=== PATIENT | female | born 1985 | race Caucasian/White ===

== ENCOUNTER → 2018-11-19 | Outpatient (REF) ==
[~2018-11-19] MED LIST: ADDE5CAP PO; ALBU17IN INH; ALBUPOW9 XX; BCP PO; CITA20TA6 PO; FOLI1TAB86 PO; KLON1TAB PO; LAMI25TA PO; LATU40TA PO; LITH150C PO; MULTTAB33 PO; MUPI1OIN2 TOP; NEUR300C PO; NEXI1CAP3 PO; NEXI40GR PO; OLAN2.5T PO; PROZ20CA11 PO; RISP1TAB3 PO; THIA100T PO; TRAZ100T2 PO; TRAZ50TA2 PO; VITA-182 PO; VITAPRTA PO; bcp PO
--- NOTE | 2018-11-19 19:24 | REP ---
Clinical: Left hip pain. Technique: Neutral and frog lateral views of the left hip. Findings: Generalized age-related changes are appreciated. No overt osteoarthritic degenerative changes are appreciated. No periarticular calcifications or loose bodies noted. No acute fracture dislocation. Phleboliths noted in the pelvis. Impression: Age-appropriate left hip radiographs. Electronically Signed by Rustam Petersen MD 11/19/2018 07:15 P
== END ==
LOC: M SMT 13:33
PROVIDERS: ATTEND Internal Medicine
DX: Z02.71 Encounter for disability determination (principal)

== ENCOUNTER → 2023-11-21 | Outpatient (REF) | payer OTHER, MEDICAID ==
[~2023-11-21] MED LIST changes: -LATU40TA PO; +LATU40TA2 PO
[2023-11-21 14:26] LABS: HEMATOCRIT 38.5 % (36.0-47.0); HEMOGLOBIN 12.6 g/dl (12.0-15.5); MEAN CORPUSCULAR HEMOGLOBIN 29.4 pg (27.0-33.0); MEAN CORPUSCULAR HGB CONC 32.7 g/dl (32.0-36.5); PLATELET COUNT, AUTOMATED 302 10^3/uL (150-450); RED BLOOD COUNT 4.28 10^6/uL (4.00-5.40); WHITE BLOOD COUNT 6.7 10^3/uL (4.0-10.0)
[2023-11-21 14:40] LABS: HEMOGLOBIN A1c 5.4 % (4.0-6.0)
[2023-11-21 14:54] LABS: ALBUMIN 3.9 G/DL (3.2-5.2); ALKALINE PHOSPHATASE 70 U/L (46-116); ALT/SGPT 16 U/L (7.0-40); AST/SGOT < 8 U/L (<34); BILIRUBIN,TOTAL 0.4 MG/DL (0.3-1.2); BLOOD UREA NITROGEN 14 MG/DL (9-23); CALCIUM LEVEL 9.4 MG/DL (8.5-10.1); CARBON DIOXIDE LEVEL 28 MMOL/L (20-31); CHLORIDE LEVEL 106 MMOL/L (98-107); CHOLESTEROL LEVEL 133 MG/DL (<200); CHOLESTEROL RISK RATIO 2.61 (<5); CREATININE FOR GFR 0.83 MG/DL (0.55-1.30); GLOMERULAR FILTRATION RATE > 60.0 (>60); GLUCOSE, FASTING 86 MG/DL (60-100); HDL CHOLESTEROL 50.8 MG/DL (>40); LDL CHOLESTEROL 68.2 MG/DL (<100); NON-HDL-C 82.2 MG/DL; POTASSIUM SERUM 3.7 MMOL/L (3.5-5.1); SODIUM LEVEL 139 MMOL/L (136-145); TOTAL PROTEIN 7.1 G/DL (5.7-8.2); TRIGLYCERIDES LEVEL 70 MG/DL (<150)
[2023-11-21 14:55] LABS: THYROID STIMULATING HORMONE 7.134 uIU/ML (0.55-4.78)
== END ==
LOC: M LAB REF 12:47
PROVIDERS: ATTEND Family Medicine Addiction Medicine
DX: E11.9 Type 2 diabetes mellitus without complications (principal); E03.9 Hypothyroidism, unspecified

== ENCOUNTER → 2024-03-06 | Outpatient (REF) | payer OTHER, MEDICAID ==
[2024-03-06 13:39] LABS: ALBUMIN 3.8 G/DL (3.2-5.2); ALKALINE PHOSPHATASE 90 U/L (46-116); ALT/SGPT 16 U/L (7.0-40); AST/SGOT < 8 U/L (<34); BILIRUBIN,TOTAL 0.4 MG/DL (0.3-1.2); BLOOD UREA NITROGEN 11 MG/DL (9-23); CALCIUM LEVEL 10.3 MG/DL (8.5-10.1); CARBON DIOXIDE LEVEL 30 MMOL/L (20-31); CHLORIDE LEVEL 107 MMOL/L (98-107); CHOLESTEROL LEVEL 148 MG/DL (<200); CHOLESTEROL RISK RATIO 3.39 (<5); CREATININE FOR GFR 0.62 MG/DL (0.55-1.30); GLOMERULAR FILTRATION RATE > 60.0 (>60); GLUCOSE, FASTING 89 MG/DL (60-100); HDL CHOLESTEROL 43.6 MG/DL (>40); LDL CHOLESTEROL 81.8 MG/DL (<100); NON-HDL-C 104.4 MG/DL; POTASSIUM SERUM 4.2 MMOL/L (3.5-5.1); SODIUM LEVEL 138 MMOL/L (136-145); TOTAL PROTEIN 7.6 G/DL (5.7-8.2); TRIGLYCERIDES LEVEL 113 MG/DL (<150)
[2024-03-06 13:42] LABS: HEMATOCRIT 44.3 % (36.0-47.0); HEMOGLOBIN 13.9 g/dl (12.0-15.5); MEAN CORPUSCULAR HEMOGLOBIN 28.2 pg (27.0-33.0); MEAN CORPUSCULAR HGB CONC 31.4 g/dl (32.0-36.5); MEAN CORPUSCULAR VOLUME 89.9 fl (80.0-96.0); PLATELET COUNT, AUTOMATED 376 10^3/uL (150-450); RED BLOOD COUNT 4.93 10^6/uL (4.00-5.40); WHITE BLOOD COUNT 7.4 10^3/uL (4.0-10.0)
[2024-03-06 13:43] LABS: HCG, SERUM QUALITATIVE NEGATIVE (NEGATIVE)
[2024-03-06 13:48] LABS: HEMOGLOBIN A1c 5.3 % (4.0-6.0)
== END ==
LOC: M LAB REF 12:40
PROVIDERS: ATTEND Family Medicine Addiction Medicine
DX: Z32.01 Encounter for pregnancy test, result positive (principal); E11.9 Type 2 diabetes mellitus without complications; E03.9 Hypothyroidism, unspecified

== ENCOUNTER 2024-04-18 12:07 | Emergency (ER) | payer MEDICAID, OTHER ==
[~2024-04-18] VITALS: Ht 167.6 cm; Wt 60.5 kg
[2024-04-18] MEDS ORDERED: SPIR12.9 (12:20)
[2024-04-18] MEDS ORDERED: TRAZ-257 (12:20)
[2024-04-18] MEDS ORDERED: LEVO150T7 (12:20)
[2024-04-18] MEDS ORDERED: OMEP-173 (12:20)
[2024-04-18 12:36] VITALS: BP 114/59
[2024-04-18 12:58] LABS: BASO % 0.3 % (0.0-1.0); EOS # 0.1 10^3/uL (0.0-0.5); EOS % 0.8 % (0.0-3.0); HEMATOCRIT 35.7 % (36.0-47.0); HEMOGLOBIN 11.5 g/dl (12.0-15.5); LYMPH # 2.6 10^3/uL (1.5-5.0); LYMPH % 27.7 % (24.0-44.0); MEAN CORPUSCULAR HEMOGLOBIN 28.6 pg (27.0-33.0); MEAN CORPUSCULAR HGB CONC 32.2 g/dl (32.0-36.5); MEAN CORPUSCULAR VOLUME 88.8 fl (80.0-96.0); MONO # 0.7 10^3/uL (0.0-0.8); MONO % 7.3 % (2.0-8.0); NEUTROPHILS # 5.9 10^3/uL (1.5-8.5); NEUTROPHILS % 63.6 % (36.0-66.0); PLATELET COUNT, AUTOMATED 319 10^3/uL (150-450); RED BLOOD COUNT 4.02 10^6/uL (4.00-5.40); WHITE BLOOD COUNT 9.3 10^3/uL (4.0-10.0)
[2024-04-18 13:07] VITALS: O2SAT 100
[2024-04-18 13:32] LABS: CPK CREATINE PHOSPHOKINASE 372 U/L (34-145); MB/CK RELATIVE INDEX 2.15 (< OR =4)
[2024-04-18 13:37] LABS: HCG, SERUM QUALITATIVE NEGATIVE (NEGATIVE)
[2024-04-18] MEDS: ACETAMINOPHEN 500 MG TAB PO ONE (13:46)
[2024-04-18 14:40] VITALS: TEMP 97.4
== END 2024-04-18 14:59 | disposition home or self-care (01) ==
LOC: M ED 12:07
DX: R07.9 Chest pain, unspecified (principal); B34.0 Adenovirus infection, unspecified; E78.5 Hyperlipidemia, unspecified; F17.200 Nicotine dependence, unspecified, uncomplicated; F12.10 Cannabis abuse, uncomplicated; Z79.52 Long term (current) use of systemic steroids; Z79.899 Other long term (current) drug therapy

== ENCOUNTER → 2024-06-25 | Outpatient (REF) | payer OTHER ==
[~2024-06-25] MED LIST changes: +LEVO150T7; +OMEP-173; +SPIR12.9; +TRAZ-257
[2024-06-25 14:57] LABS: ALBUMIN 3.9 G/DL (3.2-5.2); ALKALINE PHOSPHATASE 72 U/L (35-104); ALT/SGPT 17 U/L (7.0-40); AST/SGOT 8 U/L (<34); BILIRUBIN,TOTAL 0.8 MG/DL (0.3-1.2); BLOOD UREA NITROGEN 16 MG/DL (9-23); CARBON DIOXIDE LEVEL 29 MMOL/L (20-31); CHLORIDE LEVEL 105 MMOL/L (98-107); CREATININE FOR GFR 0.78 MG/DL (0.55-1.30); GLOMERULAR FILTRATION RATE > 60.0 (>60); GLUCOSE, FASTING 74 MG/DL (60-100); POTASSIUM SERUM 4.7 MMOL/L (3.5-5.1); SODIUM LEVEL 142 MMOL/L (136-145); TOTAL PROTEIN 7.8 G/DL (5.7-8.2)
[2024-06-25 14:59] LABS: THYROID STIMULATING HORMONE 13.367 uIU/ML (0.55-4.78)
[2024-06-25 15:04] LABS: VITAMIN B12 LEVEL 418 PG/ML (211-911)
[2024-06-25 15:11] LABS: Trichomonas vaginalis (AMP) NOT DETECTED (NEGATIVE)
[2024-06-25 15:34] LABS: GC DNA AMPLIFICATION NEGATIVE (NEGATIVE)
[2024-06-25 15:37] LABS: HEPATITIS C VIRUS ABY INDEX < 0.02 INDEX (<0.8)
[2024-06-25 15:40] LABS: HEMOGLOBIN A1c 5.4 % (4.0-6.0)
[2024-06-25 16:42] LABS: HIV 1&2 SCREEN NEGATIVE (NEGATIVE)
== END ==
LOC: M LAB REF 12:31
PROVIDERS: ATTEND Family Medicine Addiction Medicine
DX: E03.9 Hypothyroidism, unspecified (principal); Z20.2 Contact with and (suspected) exposure to infections with a predominantly sexual mode of transmission

== ENCOUNTER → 2024-09-04 | Outpatient (REF) | payer OTHER ==
[2024-09-04 15:52] LABS: ALBUMIN 3.8 G/DL (3.2-5.2); ALKALINE PHOSPHATASE 64 U/L (35-104); ALT/SGPT 17 U/L (7.0-40); AST/SGOT 9 U/L (<34); BILIRUBIN,TOTAL 0.4 MG/DL (0.3-1.2); BLOOD UREA NITROGEN 10 MG/DL (9-23); CALCIUM LEVEL 9.5 MG/DL (8.5-10.1); CARBON DIOXIDE LEVEL 30 MMOL/L (20-31); CHLORIDE LEVEL 104 MMOL/L (98-107); CHOLESTEROL LEVEL 139 MG/DL (<200); CHOLESTEROL RISK RATIO 2.08 (<5); CREATININE FOR GFR 0.75 MG/DL (0.55-1.30); GLOMERULAR FILTRATION RATE > 60.0 (>60); GLUCOSE, FASTING 96 MG/DL (60-100); HDL CHOLESTEROL 66.6 MG/DL (>40); LDL CHOLESTEROL 57.4 MG/DL (<100); NON-HDL-C 72.4 MG/DL; POTASSIUM SERUM 4.4 MMOL/L (3.5-5.1); SODIUM LEVEL 142 MMOL/L (136-145); TOTAL PROTEIN 7.1 G/DL (5.7-8.2); TRIGLYCERIDES LEVEL 75 MG/DL (<150)
[2024-09-04 15:56] LABS: THYROID STIMULATING HORMONE 5.636 uIU/ML (0.55-4.78)
== END ==
LOC: M LAB REF 14:55
PROVIDERS: ATTEND Family Medicine Addiction Medicine
DX: E03.9 Hypothyroidism, unspecified (principal)

== ENCOUNTER 2024-09-29 20:00 | Inpatient (IN) | payer MEDICAID, OTHER ==
[~2024-09-29] VITALS: Ht 167.6 cm; Wt 54.0 kg
[~2024-09-29 20:00] MED LIST changes: -LEVO150T7; +LEVO150T7 PO; -OMEP-173; +OMEP-173 PO; -SPIR12.9; +SPIR12.9 INH
[2024-09-29 20:56] LABS: HEMATOCRIT 40.7 % (36.0-47.0); HEMOGLOBIN 13.2 g/dl (12.0-15.5); MEAN CORPUSCULAR HEMOGLOBIN 29.6 pg (27.0-33.0); MEAN CORPUSCULAR HGB CONC 32.4 g/dl (32.0-36.5); MEAN CORPUSCULAR VOLUME 91.3 fl (80.0-96.0); PLATELET COUNT, AUTOMATED 374 10^3/uL (150-450); RED BLOOD COUNT 4.46 10^6/uL (4.00-5.40); WHITE BLOOD COUNT 9.1 10^3/uL (4.0-10.0)
[2024-09-29] MEDS: NS (Normal Saline) 0.9% 1,000 ML IV ONE (21:07)
[2024-09-29 21:10] LABS: ETHYL ALCOHOL (ETHANOL) 0.005 % (0.000-0.010)
[2024-09-29] MEDS: CHARCOAL ACTIVATED LIQUID 25GM/120ML BTL PO ONE (21:10)
[2024-09-29 21:12] LABS: CPK CREATINE PHOSPHOKINASE 110 U/L (34-145); SALICYLATE LEVEL < 3.0 MG/DL (<30)
[2024-09-29 21:13] LABS: ALBUMIN 4.3 G/DL (3.2-5.2); ALKALINE PHOSPHATASE 82 U/L (35-104); ALT/SGPT 16 U/L (7.0-40); AST/SGOT 11 U/L (<34); BILIRUBIN,DIRECT 0.1 MG/DL (<0.4); BILIRUBIN,TOTAL 0.3 MG/DL (0.3-1.2); BLOOD UREA NITROGEN 21 MG/DL (9-23); CARBON DIOXIDE LEVEL 29 MMOL/L (20-31); CHLORIDE LEVEL 104 MMOL/L (98-107); CREATININE FOR GFR 1.02 MG/DL (0.55-1.30); GLOMERULAR FILTRATION RATE 72.2 (>60); GLUCOSE, FASTING 94 MG/DL (60-100); POTASSIUM SERUM 4.1 MMOL/L (3.5-5.1); SODIUM LEVEL 141 MMOL/L (136-145); TOTAL PROTEIN 7.9 G/DL (5.7-8.2)
[2024-09-29 21:19] LABS: BENZODIAZEPINES URINE NEGATIVE (NEGATIVE); METHADONE URINE NEGATIVE (NEGATIVE); OPIATES URINE NEGATIVE (NEGATIVE); PHENCYCLIDINE URINE NEGATIVE (NEGATIVE)
[2024-09-29 21:20] LABS: AMPHETAMINES LEVEL URINE POSITIVE (NEGATIVE); BARBITURATES URINE NEGATIVE (NEGATIVE); CANNABINOIDS URINE POSITIVE (NEGATIVE); COCAINE METABOLITE URINE NEGATIVE (NEGATIVE)
[2024-09-29 21:28] LABS: ATYPICAL LYMPH 11 % (0-5); LYMPHOCYTES 30 % (16-44); MONOCYTES 6 % (0-5); NEUTROPHILS 53 % (28-66)
[2024-09-29 21:29] LABS: ANISOCYTOSIS 1+; PLATELET ESTIMATE NORMAL (NORMAL)
[2024-09-30] MEDS ORDERED: MAALOX 30 ML SUSP *UDC PO PRN (04:20)
[2024-09-30] MEDS ORDERED: MOM 30ML SUSPENSION UDC PO PRN (04:20)
[2024-09-30] MEDS ORDERED: diphenhydrAMINE 25MG CAP PO PRN (04:20)
[2024-09-30] MEDS ORDERED: traZODone 50 MG TAB PO PRN (04:20)
[2024-09-30] MEDS: ALBUTEROL 90 MCG/ACT 8GM HFA INHALER INH ONE (04:54)
[2024-09-30 06:29] VITALS: BP 118/64; TEMP 97.9; O2SAT 100
[2024-09-30] MEDS: IBUPROFEN 400MG TAB PO PRN (08:21)
[2024-09-30] MEDS ORDERED: ALBU8.5H INH (10:07)
[2024-09-30] MEDS ORDERED: OMEP40CA5 PO (10:11)
[2024-09-30] MEDS ORDERED: IBUP-1114 PO (10:14)
[2024-09-30] MEDS ORDERED: ACET-683 PO (10:14)
[2024-09-30] MEDS ORDERED: QUET150T18 PO (10:16)
[2024-09-30] MEDS ORDERED: QUET50TA4 PO (10:16)
[2024-09-30] MEDS ORDERED: CEFD1CAP9 PO (10:18)
[2024-09-30] MEDS ORDERED: BUSP15TA47 PO (10:18)
[2024-09-30] MEDS ORDERED: HYDR50TA70 PO ×2 (10:20)
[2024-09-30] MEDS ORDERED: ATOM40CA9 PO (10:22)
[2024-09-30] MEDS ORDERED: BUPR8SUB SL (10:23)
[2024-09-30] MEDS ORDERED: ROPI0.5T33 PO (10:24)
[2024-09-30] MEDS ORDERED: HOME MED LIST COMPLETE! XX SCH (10:30)
[2024-09-30] MEDS: ACETAMINOPHEN 325 MG TAB PO PRN (11:10)
[2024-09-30] MEDS: hydrOXYzine 50 MG TAB PO STA (11:20)
[2024-09-30] MEDS: BACLOFEN 10 MG TAB PO ONE (11:20)
[2024-10-07] MEDS ORDERED: cloNIDine HCL 0.1 MG/24 HR PATCH TOP SCH (09:00)
== END 2024-09-30 12:35 | disposition home or self-care (01) | DRG 753 ==
LOC: M ED 20:00 → M ED INP 09-30 04:16 → M PSY 09-30 05:57
PROVIDERS: ADMIT Student in an Organized Health Care Education/Training Program; ATTEND Student in an Organized Health Care Education/Training Program
DX: F31.9 Bipolar disorder, unspecified (principal); F41.9 Anxiety disorder, unspecified; F19.90 Other psychoactive substance use, unspecified, uncomplicated; F60.3 Borderline personality disorder; F43.10 Post-traumatic stress disorder, unspecified; F90.9 Attention-deficit hyperactivity disorder, unspecified type; K21.9 Gastro-esophageal reflux disease without esophagitis; F17.200 Nicotine dependence, unspecified, uncomplicated; J45.909 Unspecified asthma, uncomplicated; Z79.890 Hormone replacement therapy; Z79.899 Other long term (current) drug therapy; Z56.0 Unemployment, unspecified; Z91.51 Personal history of suicidal behavior

== ENCOUNTER → 2025-01-05 | Outpatient (REF) | payer MEDICAID ==
[~2025-01-05] MED LIST changes: +ACET-683 PO; +ALBU8.5H INH; +ATOM40CA9 PO; +BUPR8SUB SL; +BUSP15TA47 PO; +CEFD1CAP9 PO; +HYDR50TA70 PO; +IBUP-1114 PO; +OMEP40CA5 PO; +QUET150T18 PO; +QUET50TA4 PO; +ROPI0.5T33 PO
[2025-01-05 13:12] LABS: VITAMIN B12 LEVEL 510.0 PG/ML (211-911)
[2025-01-05 13:50] LABS: ESTIMATED AVERAGE GLUCOSE 103.0 MG/DL (60-110)
== END ==
LOC: M LAB REF 11:58
PROVIDERS: ATTEND Family Medicine Addiction Medicine
DX: E03.9 Hypothyroidism, unspecified (principal)